=== PATIENT | male | born 1985 | race Caucasian/White ===

== ENCOUNTER 2023-05-17 14:03 | Inpatient (IN) | payer BC ==
[2023-05-17 15:27] VITALS: BMI 13.9
[2023-05-17] MEDS ORDERED: BENZOCAINE/MENTHOL (CHLORASEPTIC ) LOZENGE MM PRN (23:47)
[2023-05-17] MEDS ORDERED: ONDANSETRON *ODT* 4 MG TABLET SL PRN (23:47)
[2023-05-17] MEDS ORDERED: POLYETHYLENE GLYCOL (HEALTHYLAX) 3350 17 GM PACKET PO PRN (23:47)
[2023-05-17] MEDS ORDERED: MAG HYDROX/AL HYDROX/SIMETH 30 ML UNIT-DOSE CUP PO PRN (23:47)
[2023-05-17] MEDS ORDERED: NICOTINE POLACRILEX 2 MG GUM BUC PRN (23:47)
[2023-05-17] MEDS ORDERED: BENZONATATE 200 MG CAPSULE PO PRN (23:47)
[2023-05-17] MEDS ORDERED: BISMUTH SUBSALICYLATE 524 MG/30 ML PO PRN (23:47)
[2023-05-17] MEDS ORDERED: IBUPROFEN 400 MG TABLET (FP) PO PRN (23:47)
[2023-05-17] MEDS ORDERED: IBUPROFEN 600 MG TABLET (FP) PO PRN (23:47)
[2023-05-17] MEDS ORDERED: DICYCLOMINE HCL 10 MG CAPSULE PO PRN (23:47)
[2023-05-17] MEDS ORDERED: guaiFENesin 600 MG TABLET.ER (FP) PO PRN (23:47)
[2023-05-17] MEDS ORDERED: NALOXONE HCL (KLOXXADO) 8 MG SPRAY NS PRN (23:47)
[2023-05-17] MEDS ORDERED: LOPERAMIDE HCL 2 MG CAPSULE PO PRN (23:47)
[2023-05-17] MEDS ORDERED: diazePAM 5 MG TABLET PO PRN (23:47)
[2023-05-17] MEDS ORDERED: NALOXONE HCL 0.4 MG/ML VIAL IM PRN (23:47)
[2023-05-17] MEDS ORDERED: MAGNESIUM HYDROX 2400MG/30ML ORAL SUSPENSION 30 ML CUP PO PRN (23:47)
[2023-05-17] MEDS ORDERED: ACETAMINOPHEN 325 MG TABLET (FP) PO PRN (23:47)
[2023-05-18] MEDS ORDERED: diazePAM 5 MG TABLET ONE (01:11)
[2023-05-18] MEDS: diazePAM 5 MG TABLET PO SCH ×4 (01:13→17:30)
[2023-05-18] MEDS: PRENATAL VITAMINS W/ FOLIC ACID TABLET (FP) PO SCH (10:15)
[2023-05-18] MEDS: NICOTINE 14 MG/24 HOURS TOPICAL PATCH TD SCH (10:15)
[2023-05-18] MEDS ORDERED: methaDONE HCL 10 MG TABLET PO ONE ×2 (10:24)
[2023-05-18] MEDS ORDERED: methaDONE 40 MG, methaDONE 20 MG PO ONE (10:30)
[2023-05-18 10:41] LABS: HEMATOCRIT 28.9 % (35.4-49); HEMOGLOBIN 9.7 GM/dL (11.7-16.9); MCHC 33.5 g/dl (32.0-35.9); MEAN CELL VOLUME 92.8 fl (80-96); MEAN PLT VOLUME 7.2 fl (7.5-11.1); PLATELET COUNT 326 10^3/uL (134-434); RBC 3.12 M/mm3 (4.00-5.60); RDW 15.7 % (11.9-15.9); WHITE BLOOD COUNT 4.9 K/mm3 (4.0-10.0)
[2023-05-18 10:46] LABS: CHLORIDE 105 mmol/L (98-107); POTASSIUM 3.9 mmol/L (3.5-5.1); SODIUM 142 mmol/L (136-145)
[2023-05-18] MEDS: CYPROHEPTADINE HCL 4 MG TABLET PO SCH ×2 (11:07→17:00)
[2023-05-18 11:10] LABS: CALCIUM 8.7 mg/dL (8.5-10.1)
[2023-05-18 11:11] LABS: ALBUMIN 2.6 g/dl (3.4-5.0); ANION GAP 5 mmol/L (4-13); BLOOD UREA NITROGEN 12.9 mg/dL (7-18); CO2 32 mmol/L (21-32); GLUCOSE,RANDOM 83 mg/dL (74-106)
[2023-05-18 11:14] LABS: CREATININE 0.7 mg/dL (0.55-1.3); SGOT/AST 39 U/L (15-37)
[2023-05-18 11:15] LABS: BILIRUBIN,TOTAL 0.6 mg/dL (0.2-1); SGPT/ALT 39 U/L (13-61); TOT PROT 5.1 g/dl (6.4-8.2)
[2023-05-18 11:17] LABS: ALK PHOS 99 U/L (45-117)
[2023-05-18] MEDS: MELATONIN 5 MG TABLETS PO SCH (22:16)
[2023-05-18] MEDS: THIAMINE HCL 100 MG TABLET (FP) PO SCH (22:16)
[2023-05-18] MEDS: SENNOSIDES 8.6MG TABLET (FP) PO SCH (22:17)
[2023-05-19] MEDS: diazePAM 5 MG TABLET PO SCH ×4 (00:34→22:13)
[2023-05-19] MEDS ORDERED: methaDONE HCL 10 MG TABLET PO ONE (06:00)
[2023-05-19] MEDS ORDERED: methaDONE 40 MG, methaDONE 30 MG PO ONE (06:00)
[2023-05-19] MEDS: CYPROHEPTADINE HCL 4 MG TABLET PO SCH ×3 (07:12→16:27)
[2023-05-19] MEDS: NICOTINE 14 MG/24 HOURS TOPICAL PATCH TD SCH (09:57)
[2023-05-19] MEDS: PRENATAL VITAMINS W/ FOLIC ACID TABLET (FP) PO SCH (09:58)
[2023-05-19] MEDS: FERROUS SO4 325 MG TABLET (FP) PO SCH (17:19)
[2023-05-19] MEDS: MELATONIN 5 MG TABLETS PO SCH (22:12)
[2023-05-19] MEDS: SENNOSIDES 8.6MG TABLET (FP) PO SCH (22:13)
[2023-05-19] MEDS: THIAMINE HCL 100 MG TABLET (FP) PO SCH (22:13)
[2023-05-20] MEDS: diazePAM 5 MG TABLET PO SCH ×2 (05:38→17:41)
[2023-05-20] MEDS ORDERED: methaDONE HCL 40 MG DISPERSABLE TABLET PO ONE (06:00)
[2023-05-20] MEDS: CYPROHEPTADINE HCL 4 MG TABLET PO SCH ×3 (07:53→16:40)
[2023-05-20] MEDS: FERROUS SO4 325 MG TABLET (FP) PO SCH ×3 (07:53→17:41)
[2023-05-20] MEDS: NICOTINE 14 MG/24 HOURS TOPICAL PATCH TD SCH (10:13)
[2023-05-20] MEDS: PRENATAL VITAMINS W/ FOLIC ACID TABLET (FP) PO SCH (10:13)
[2023-05-20] MEDS: SENNOSIDES 8.6MG TABLET (FP) PO SCH (22:24)
[2023-05-20] MEDS: MELATONIN 5 MG TABLETS PO SCH (22:24)
[2023-05-20] MEDS: THIAMINE HCL 100 MG TABLET (FP) PO SCH (22:24)
[2023-05-21] MEDS ORDERED: diazePAM 5 MG TABLET PO ONE (06:00)
[2023-05-21] MEDS ORDERED: methaDONE 80 MG, methaDONE 10 MG PO ONE (06:00)
[2023-05-21] MEDS ORDERED: methaDONE HCL 10 MG TABLET PO ONE (06:00)
[2023-05-21] MEDS: CYPROHEPTADINE HCL 4 MG TABLET PO SCH ×3 (06:03→16:31)
[2023-05-21] MEDS: FERROUS SO4 325 MG TABLET (FP) PO SCH ×3 (07:23→18:38)
[2023-05-21 09:09] VITALS: BP 103/64; PULSE 90; RESP 16; TEMP 97.8
[2023-05-21] MEDS: PRENATAL VITAMINS W/ FOLIC ACID TABLET (FP) PO SCH (09:37)
[2023-05-21] MEDS: NICOTINE 14 MG/24 HOURS TOPICAL PATCH TD SCH (09:37)
== END 2023-05-21 18:42 | disposition short-term general hospital (02) | DRG 773 ==
LOC: YASAS 14:03 → Y6N 05-18 01:33
PROVIDERS: ADMIT Allergy & Immunology; ATTEND Allergy & Immunology
PROC: HZ2ZZZZ Detoxification Services for Substance Abuse Treatment (ICD-10-PCS; principal; 2023-05-18)
DX: F13.230 Sedative, hypnotic or anxiolytic dependence with withdrawal, uncomplicated (principal); F11.20 Opioid dependence, uncomplicated; F14.20 Cocaine dependence, uncomplicated; F12.10 Cannabis abuse, uncomplicated; F17.210 Nicotine dependence, cigarettes, uncomplicated; F41.0 Panic disorder [episodic paroxysmal anxiety]; F32.A Depression, unspecified; E86.0 Dehydration; E63.9 Nutritional deficiency, unspecified; Z68.1 Body mass index [BMI] 19.9 or less, adult
CPT/HCPCS: 36415; 80053; 80307; 82607; 82728; 82746; 83540; 83550; 85027; 86780; 87635; 87811; 93005; 93010; Q0162